=== PATIENT | female | born 1990 | race African-American/Black ===

== ENCOUNTER 2016-12-01 12:11 | Emergency (ER) | payer BC, MEDICAID ==
[~2016-12-01] VITALS: Ht 165.1 cm; Wt 56.2 kg
[~2016-12-01 12:11] MED LIST: MECL-62 PO; ZITH250T PO
[2016-12-01 12:30] VITALS: BP 108/68; PULSE 76; RESP 16; TEMP 98.5; O2SAT 100
[2016-12-01] MEDS ORDERED: ONDANSETRON ODT 4 MG TAB PO ONE (13:15)
[2016-12-01 13:37] VITALS: BP 107/59; PULSE 66; RESP 16; O2SAT 99
[2016-12-01] MEDS ORDERED: ZOFR4TAB3 SL (13:50)
--- NOTE | 2016-12-01 13:55 | PD ---
HPI Chief Complaint: GI Complaint Time Seen by Provider: 12:58 Travel History International Travel<30 days: No Contact w/Intl Traveler<30days: No Traveled to known affect area: No History of Present Illness HPI This patient reports that she is 9 weeks . She complains of nausea with some vomiting. She had the same symptoms at about the same time with her last . No abdominal or pelvic pain. No vaginal bleeding or discharge or fever or urinary complaints. Does not have diarrhea. Symptoms severity is mild to moderate. No alleviating factors. PFSH Past Medical History Medical History: Denies Significant Hx Diminished Hearing: No Immunizations Current: Yes Tetanus Vaccination: < 5 Years Influenza Vaccination: No ?: LMP: APPROX 9 WEEKS : 2 Para: 1 : 1 Past Surgical History Surgical History: No Previous Surgery Abdominal Surgery: Yes Section: Yes (JUN 2007) Social History Alcohol Use: Yes (SOCIALLY) Tobacco Use: No Substance Use: No Allergies-Medications (Allergen,Severity, Reaction): Coded Allergies: Phenergan (Verified Adverse Reaction, Intermediate, HYPER ACTIVY, 12/01/16) Reported Meds & Prescriptions Reported Meds & Active Scripts Active Zofran Odt (Ondansetron Odt) 4 Mg Tab 4 Mg SL Q6HR PRN Zithromax Z-Vladimir (Azithromycin) 250 Mg Tab 250 Mg PO DIRECTED 500 MG (2 TABLETS) PO ON DAY 1, THEN 250 MG (1 TABLET) PO ON DAYS 2 TO 5. Meclizine Hcl (Meclizine HCl) 25 Mg Tab 25 Mg PO TID PRN Review of Systems General / Constitutional: No: Fever Eyes: No: Visual changes HENT: No: Headaches Cardiovascular: No: Chest Pain or Discomfort Respiratory: No: Shortness of Breath Gastrointestinal: Positive: Nausea, Vomiting, No: Abdominal Pain Genitourinary: No: Dysuria Musculoskeletal: No: Pain Skin: No Rash Neurologic: No: Weakness Psychiatric: No: Depression Endocrine: No: Polydipsia Hematologic/Lymphatic: No: Easy Bruising Physical Exam Narrative GENERAL: Well-nourished, well-developed patient in no apparent distress. SKIN: Warm and dry. HEAD: Atraumatic. Normocephalic. EYES: Pupils equal and round. No scleral icterus. No injection or drainage. ENT: No nasal bleeding or discharge. Mucous membranes pink and moist. NECK: Trachea midline. No JVD. CARDIOVASCULAR: Regular rate and rhythm. No murmur appreciated. RESPIRATORY: No accessory muscle use. Clear to auscultation. Breath sounds equal bilaterally. GASTROINTESTINAL: Abdomen soft, non-tender, nondistended. Hepatic and splenic margins not palpable. MUSCULOSKELETAL: No obvious deformities. No clubbing. No cyanosis. No edema. NEUROLOGICAL: Awake and alert. No obvious cranial nerve deficits. Motor grossly within normal limits. Normal speech. PSYCHIATRIC: Appropriate mood and affect; insight and judgment normal. Data Data Last Documented VS Vital Signs Date Time Temp Pulse Resp B/P Pulse Ox O2 Delivery O2 Flow Rate FiO2 12/01/16 13:37 66 16 107/59 99 Room Air 12/01/16 12:30 98.5 Orders Ondansetron Odt (Zofran Odt) (12/01/16 13:15) [facility] Medical Decision Making Medical Screen Exam Complete: Yes Emergency Medical Condition: Yes Medical Record Reviewed: Yes Differential Diagnosis Hyperemesis gravidarum, dehydration, gastroenteritis Narrative Course I have reviewed the patient's electronic medical record. Patient's vital signs and examination are normal She looks well-hydrated on exam with moist mucous membranes and normal turgor and no tachycardia Abdomen is soft and benign and nontender We discussed options. She would like a prescription for nausea relief. She is allergic to Phenergan so I have written her some Zofran and gave her a dose here She reports that she has an appointment set up to start care Diagnosis Primary Impression: Nausea/vomiting in Additional Instructions: The patient was advised to follow up with their physician and return if they worsen. I have recommended clear liquids for 24 hours, then gradually advance as tolerated. Med/Other Pt SpecificInfo: Prescription(s) given Scripts Ondansetron Odt (Zofran Odt)4 Mg Tab4 Mg SL Q6HR PRN (Nausea/Vomiting) #20 TAB Ref 0 Prov:Dash Durant MD 12/01/16 Disposition: 01 DISCHARGE HOME Condition: Stable Dash Durant MD Dec 01, 2016 13:55
== END 2016-12-01 14:05 | disposition home or self-care (01) ==
LOC: PHED 12:11
DX: O21.0 Mild hyperemesis gravidarum (principal); Z3A.09 9 weeks gestation of pregnancy
CPT/HCPCS: 99283

== ENCOUNTER 2016-12-18 01:06 | Emergency (ER) | payer MEDICAID ==
[~2016-12-18] VITALS: Ht 165.1 cm; Wt 57.0 kg
[~2016-12-18 01:06] MED LIST changes: +ZOFR4TAB3 SL
[2016-12-18 01:08] VITALS: BP 118/80; PULSE 92; RESP 16; TEMP 98; O2SAT 99
--- NOTE | 2016-12-18 01:26 | PD ---
HPI Chief Complaint: Cold / Flu Symptoms Time Seen by Provider: 01:23 Travel History International Travel<30 days: No Contact w/Intl Traveler<30days: No Traveled to known affect area: No History of Present Illness HPI 26-year-old 2 para 1 with a 11 week estimated gestational age IUP presents with a five-day history of cough, congestion, and general malaise. She states that this is worse at night when she lays down. She also states that in the morning she'll cough up some brown mucus which clears up. She denies any asthma. She does not smoke. She denies fever and chills. Positive nausea and vomiting at times. No abdominal pain. Complications of the . No urine symptoms. No leg swelling or calf pain. PFSH Past Medical History Medical History: Denies Significant Hx Diminished Hearing: No Immunizations Current: Yes Tetanus Vaccination: < 5 Years ?: : 2 Para: 1 : 1 Past Surgical History Abdominal Surgery: Yes Section: Yes (JUN 2007) Social History Alcohol Use: Yes (SOCIALLY) Tobacco Use: No Substance Use: No Allergies-Medications (Allergen,Severity, Reaction): Coded Allergies: Phenergan (Verified Adverse Reaction, Intermediate, HYPER ACTIVY, 12/18/16) Reported Meds & Prescriptions Reported Meds & Active Scripts Active Zofran Odt (Ondansetron Odt) 4 Mg Tab 4 Mg SL Q6HR PRN Zithromax Z-Vladimir (Azithromycin) 250 Mg Tab 250 Mg PO DIRECTED 500 MG (2 TABLETS) PO ON DAY 1, THEN 250 MG (1 TABLET) PO ON DAYS 2 TO 5. Meclizine Hcl (Meclizine HCl) 25 Mg Tab 25 Mg PO TID PRN Review of Systems Except as stated in HPI: all other systems reviewed are Neg Physical Exam Narrative GENERAL: Well-developed, well-nourished in no acute distress. Nontoxic appearing. HEAD: Normocephalic, atraumatic. EYES: Pupils equal round and reactive. Extraocular motions intact. No scleral icterus. No injection or drainage. ENT: TMs clear without erythema. The external auditory canals clear. Nose: clear . Posterior pharynx is pink and moist. No tonsillar edema or exudate. Uvula midline. Airway patent. NECK: Trachea midline.Supple, nontender, moves head freely. No central bony tenderness or spasm. CARDIOVASCULAR: Regular rate and rhythm without murmurs, gallops, or rubs. RESPIRATORY: Clear to auscultation. Breath sounds equal bilaterally. No wheezes , rales, or rhonchi. GASTROINTESTINAL: Abdomen soft, non-tender, gravid uterus no guarding. EXTREMITIES: No clubbing, cyanosis, or edema. No joint tenderness, effusion, or edema noted. BACK: Nontender without deformity or crepitance. No flank tenderness. Data Data Last Documented VS Vital Signs Date Time Temp Pulse Resp B/P Pulse Ox O2 Delivery O2 Flow Rate FiO2 12/18/16 01:08 98.0 92 16 118/80 99 Orders Influenzae A/B Antigen (12/18/16 01:22) MDM Medical Decision Making Medical Screen Exam Complete: Yes Emergency Medical Condition: Yes Medical Record Reviewed: Yes Interpretation(s) Influenza: Negative Differential Diagnosis MDM: High Differential diagnoses: Pneumonia, bronchitis, URI, asthma, RAD, influenza Narrative Course Patient is influenza is negative. Her exam is unremarkable. She'll be given albuterol for her cough and advised to take Tylenol and Sudafed. This is URI Diagnosis Primary Impression: URI (upper respiratory infection) Patient Instructions: General Instructions Additional Instructions: Rest. Increase fluids. Tylenol. Sudafed for congestion albuterol. Followup with your Dr. in one week. Return to the ER for any problems. Med/Other Pt SpecificInfo: Prescription(s) given Scripts Albuterol 6.7 GM Inh (Proventil Hfa 6.7 GM Inh)90 Mcg/Act Aer2 Puff INH Q6H PRN (SHORTNESS OF BREATH) #1 INHALER Prov:Sami Shukla MD 12/18/16 Disposition: 01 DISCHARGE HOME Condition: Stable Lazaro Wells Dec 18, 2016 01:26
[2016-12-18] MEDS ORDERED: ALBU6.7H INH (01:57)
== END 2016-12-18 02:25 | disposition home or self-care (01) ==
LOC: NEPB 01:06
DX: J06.9 Acute upper respiratory infection, unspecified (principal)
CPT/HCPCS: 87804; 99283

== ENCOUNTER 2017-01-05 11:05 | Emergency (ER) | payer MEDICAID ==
[~2017-01-05] VITALS: Ht 165.1 cm; Wt 50.0 kg
[~2017-01-05 11:05] MED LIST changes: +ALBU6.7H INH
[2017-01-05 11:07] VITALS: BP 150/70; PULSE 87; RESP 16; TEMP 97.8; O2SAT 98
--- NOTE | 2017-01-05 13:53 | PD ---
HPI Chief Complaint: Related Problem Time Seen by Provider: 13:39 Travel History International Travel<30 days: No Contact w/Intl Traveler<30days: No Traveled to known affect area: No History of Present Illness HPI This is a 26-year-old female who is 13 weeks who presents to the emergency department with lower abdominal cramping this been going on for 1 week , intermittent, mild, associated with white thick vaginal discharge. She says she always has some discharge but it's increased and more than normal. She's only had one sexual partner her whole life. She denies any fevers or chills and denies any dysuria or itching. She has had an ultrasound in this which was normal. She has a 9-year-old son and then has had one surgical in the past. PFSH Past Medical History Diminished Hearing: No Immunizations Current: Yes ?: : 2 Para: 1 : 1 Past Surgical History Abdominal Surgery: Yes Section: Yes (JUN 2007) Social History Alcohol Use: Yes (SOCIALLY) Tobacco Use: No Substance Use: No Allergies-Medications (Allergen,Severity, Reaction): Coded Allergies: Phenergan (Verified Adverse Reaction, Intermediate, HYPER ACTIVY, 12/18/16) Reported Meds & Prescriptions Reported Meds & Active Scripts Active Proventil Hfa 6.7 GM Inh (Albuterol Sulfate) 90 Mcg/Act Aer 2 Puff INH Q6H PRN Zofran Odt (Ondansetron Odt) 4 Mg Tab 4 Mg SL Q6HR PRN Zithromax Z-Vladimir (Azithromycin) 250 Mg Tab 250 Mg PO DIRECTED 500 MG (2 TABLETS) PO ON DAY 1, THEN 250 MG (1 TABLET) PO ON DAYS 2 TO 5. Meclizine Hcl (Meclizine HCl) 25 Mg Tab 25 Mg PO TID PRN Review of Systems Except as stated in HPI: all other systems reviewed are Neg Physical Exam Narrative GENERAL:Well appearing, no acute distress SKIN: Warm and dry. HEAD: Atraumatic. Normocephalic. EYES: Pupils equal and round. No injection or drainage. ENT: Moist mucous membranes NECK: Trachea midline. CARDIOVASCULAR: Regular rate and rhythm. No murmur appreciated. RESPIRATORY: Clear to auscultation. Breath sounds equal bilaterally. GASTROINTESTINAL: Abdomen soft, mildly tender to palpation in the suprapubic region with no rebound or guarding. MUSCULOSKELETAL: No obvious deformities. NEUROLOGICAL: Awake and alert. No obvious cranial nerve deficits. Moving all extremities. PSYCHIATRIC: Appropriate mood and affect; insight and judgment normal. Data Data Last Documented VS Vital Signs Date Time Temp Pulse Resp B/P Pulse Ox O2 Delivery O2 Flow Rate FiO2 01/05/17 11:07 97.8 87 16 150/70 98 Orders Ed Poc Ultrasound (01/05/17 ) Urinalysis - C+S If Indicated (01/05/17 13:49) Wet Prep Profile (01/05/17 13:49) Gc And Chlamydia Pcr (01/05/17 13:49) Labs Laboratory Tests Test 01/05/17 14:18 Urine Color YELLOW Urine Turbidity HAZY Urine pH 7.0 Urine Specific [place] 1.020 Urine Protein TRACE mg/dL Urine Glucose (UA) NEG mg/dL Urine Ketones 10 mg/dL Urine Occult Blood NEG Urine Nitrite NEG Urine Bilirubin NEG Urine Urobilinogen LESS THAN 2.0 MG/DL Urine Leukocyte Esterase NEG Urine WBC 2 /hpf Urine Squamous Epithelial 2 /hpf Cells Urine Amorphous Sediment RARE Urine Bacteria RARE /hpf Urine Mucus FEW /lpf Microscopic Urinalysis Comment CULT NOT INDICATED Clue Cells (Wet Prep) PRESENT Vaginal Trichomonas (Wet Prep) NONE SEEN Vaginal Yeast (Wet Prep) NONE SEEN MDM Medical Decision Making Medical Screen Exam Complete: Yes Emergency Medical Condition: Yes Interpretation(s) Urinalysis: No infection Wet prep is positive for clue cells Differential Diagnosis Intrauterine , ectopic , pelvic inflammatory disease, bacterial vaginosis, urinary tract infection Narrative Course This is a 26-year-old female who presents to the emergency department with lower abdominal cramping and white vaginal discharge. She is very well- appearing on exam. Bedside ultrasound demonstrates an intrauterine with a normal heart rate. Pelvic exam demonstrates bacterial vaginosis. Wet prep confirmed this. She also has bacteria on urinalysis. She'll be treated with Macrobid and Flagyl. Procedures Procedure Narrative pelvic ultrasound: intrauterine with heart rate of 156 Diagnosis Primary Impression: Bacterial vaginosis Additional Impression: Bacteria in urine Patient Instructions: General Instructions Additional Instructions: If you develop severe or worsening abdominal pain, fever>100.4, persistent vomiting or inability to eat or drink return to the emergency department immediately. Follow up with your primary care physician if your symptoms are not improved Med/Other Pt SpecificInfo: Prescription(s) given Scripts Nitrofurantoin Monohydrate Macrocrystals (Macrobid)100 Mg [id number] Mg PO BID 7 Days Prov:Octavia Elder MD 01/05/17 Metronidazole (Flagyl)500 Mg [id number] Mg PO BID 7 Days Prov:Octavia Elder MD 01/05/17 Disposition: 01 DISCHARGE HOME Condition: Stable Octavia Elder MD Jan 05, 2017 13:53
[2017-01-05 14:41] LABS: BACTERIA, URINE RARE /hpf; BLOOD, URINE NEG (NEG); COMMENT (UR) CULT NOT INDICATED; CULTURE IF INDICATED CULT NOT INDICATED; GLUCOSE,URINE NEG (NEG); KETONE, URINE 10 mg/dL (NEG); MUCUS URINE FEW /lpf (OCC); NITRITE,URINE NEG (NEG); SQUAMOUS EPITHELIAL CELL URINE 2 /hpf (0-5); URINE COLOR YELLOW (YELLW/STRAW)
[2017-01-05] MEDS ORDERED: MACR100C2 PO (14:54)
[2017-01-05] MEDS ORDERED: METR-1 PO (14:54)
[2017-01-05 18:22] LABS: CHLAMYDIA PCR NOT DETECTED (NOT DETECT); NEISSERIA PCR NOT DETECTED (NOT DETECT)
== END 2017-01-05 15:07 | disposition home or self-care (01) ==
LOC: NEPB 11:05
DX: O26.91 Pregnancy related conditions, unspecified, first trimester (principal); O23.591 Infection of other part of genital tract in pregnancy, first trimester; N76.0 Acute vaginitis; R82.71 Bacteriuria; Z3A.13 13 weeks gestation of pregnancy
CPT/HCPCS: 81001; 87210; 87491; 87591; 99284

== ENCOUNTER 2017-07-01 22:34 | Inpatient (IN) | payer MEDICAID ==
[~2017-07-01] VITALS: Ht 167.6 cm; Wt 79.8 kg
[~2017-07-01 22:34] MED LIST changes: +MACR100C2 PO; -MECL-62 PO; +METR-1 PO; -ZITH250T PO
[2017-07-01 23:10] VITALS: PULSE 74
[2017-07-01] MEDS ORDERED: LACTATED RINGER'S 1000 ML INJ 1,000 ML IV ONE (23:11)
[2017-07-01 23:20] VITALS: PULSE 70
[2017-07-01] MEDS ORDERED: TERBUTALINE INJ 1 MG/ML AMP ONE (23:22)
--- NOTE | 2017-07-01 23:23 | HHI.HP ---
History & Physical H&P HPI HPI Chief Complaint Contractions Date Seen: Jul 01, 2017 Time Seen: 23:18 Travel History International Travel<30 Days: No Contact w/Intl Traveler<30Days: No Known Affected Area: No History of Present Illness HPI 26-year-old 2 para 1 at 38 plus weeks gestation weeks gestation who reports onset of contractions this evening which are now occurring every 2-3 minutes. She denies any leakage of fluid or bleeding. She is a prior C- section and planning a repeat . Para: 1 : 2 History (Limited) History Past Medical History Medical History: Denies Significant Hx Obstetric History Obstetric History care with Dr. Montes Her first child was delivered by for arrest of descent at complete dilation. Past Surgical History Narrative Surgical Family History Family History: Negative Social History Alcohol Use: No Tobacco Use: No Substance Abuse: No Allergies-Medications Allergies-Medications (Allergen,Severity, Reaction): Coded Allergies: promethazine (Unverified Adverse Reaction, Intermediate, HYPER ACTIVY, ) Home Meds Active Scripts Nitrofurantoin Monohydrate Macrocrystals (Macrobid) 100 Mg Cap, 100 MG PO BID for Infection for 7 Days, CAP Prov:Octavia Elder MD 01/05/17 Metronidazole (Flagyl) 500 Mg Tab, 500 MG PO BID for Infection for 7 Days, TAB Prov:Octavia Elder MD 01/05/17 Albuterol 6.7 GM Inh (Proventil Hfa 6.7 GM Inh) 90 Mcg/Act Aer, 2 PUFF INH Q6H Y for SHORTNESS OF BREATH, #1 INHALER Prov:Sami Shukla MD 12/18/16 Ondansetron Odt (Zofran Odt) 4 Mg Tab, 4 MG SL Q6HR Y for Nausea/Vomiting, #20 TAB 0 Refills Prov:Dash Durant MD 12/01/16 ROS Review of Systems Except as stated in HPI: all other systems reviewed are Neg Physical Exam Physical Exam Narrative GENERAL: Well-nourished, well-developed patient. SKIN: Warm and dry. HEAD: Normocephalic and atraumatic. EYES: No scleral icterus. No injection or drainage. ENT: No nasal drainage noted. Mucous membranes pink. Airway patent. NECK: Supple, trachea midline. No JVD. CARDIOVASCULAR: Regular rate and rhythm without murmurs, gallops, or rubs. RESPIRATORY: Breath sounds equal bilaterally. No accessory muscle use. ABDOMEN/GI: Abdomen soft, non-tender, bowel sounds present, no rebound, no guarding Gravid to [-] weeks size Fundal Height: [-39] GENITOURINARY: External Genitalia: intact and normal in appearance BUS glands: [Negative-] Cervix: [-] Dilatation: [-2] Effacement: [80 Station: [--2] Presentation: [Vertex-] Membranes: [intact ] Uterine Contractions: [Every 2-3-] FHT's: Category: [-1] Baseline: [-] Reactive: [-] Variability: [-] Decels: [-] EXTREMITIES: No cyanosis or edema. BACK: Nontender without obvious deformity. No CVA tenderness. NEUROLOGICAL: Awake and alert. Motor and sensory grossly within normal limits. Five out of 5 muscle strength in all muscle groups. Normal speech. Data Data MDM MDM Medical Record Reviewed: Yes Narrative Course / MDM Assessment: 38+ week intrauterine in labor with prior and planning repeat . Plan: Admit for repeat . Juan Cleveland MD Jul 01, 2017 23:22 Juan Cleveland MD Jul 01, 2017 23:23
[2017-07-01 23:25] VITALS: PULSE 70
[2017-07-01 23:30] VITALS: PULSE 79
[2017-07-01 23:33] LABS: AUTOMATED NEUTROPHIL # 9.8 TH/MM3 (1.8-7.7); BASOPHIL % 0.4 % (0.0-2.0); EOSINOPHIL % 0.3 % (0.0-4.0); HEMATOCRIT 36.8 % (35.0-46.0); LYMPH % 14.2 % (9.0-44.0); LYMPHOCYTE # 1.9 TH/MM3 (1.0-4.8); MEAN CELL VOLUME 84.2 FL (80.0-100.0); MEAN CORPUSCULAR HEMOGLOBIN 29.1 PG (27.0-34.0); MEAN CORPUSCULAR HGB CONC 34.6 % (32.0-36.0); NEUT % 75.1 % (16.0-70.0); PLATELET COUNT 177 TH/MM3 (150-450); RED BLOOD COUNT 4.38 MIL/MM3 (4.00-5.30); RED CELL DISTRIBUTION WIDTH 14.6 % (11.6-17.2); WHITE BLOOD COUNT 13.1 TH/MM3 (4.0-11.0)
[2017-07-01 23:34] LABS: HEMO FLAGS AUTO DIFF
[2017-07-01 23:35] VITALS: PULSE 90
[2017-07-01 23:40] VITALS: PULSE 103
[2017-07-01] MEDS ORDERED: LACTATED RINGER'S 1000 ML INJ 1,000 ML IV SCH (23:41)
[2017-07-01] MEDS ORDERED: OXYTOCIN 10 UNIT/ML AMP ONE (23:55)
[2017-07-02] VITALS (16 sets, daily range): BP systolic 113–162; BP diastolic 60–87; PULSE 64–90; RESP 18–30; TEMP 97.9–98.9; O2SAT 99–100
[2017-07-02 00:05] LABS: SCAN/DIFF AUTO DIFF CONFIRMED
[2017-07-02 00:06] LABS: PLATELET ESTIMATE SMEAR NORMAL (NORMAL); PLATELET MORPHOLOGY NORMAL (NORMAL)
[2017-07-02] MEDS ORDERED: ceFAZolin 2 GM PREMIX 50 ML IV SCH (00:15)
[2017-07-02] MEDS ORDERED: CITRIC ACID-SODIUM CITRATE LIQ 30 ML UDC PO SCH (00:45)
[2017-07-02] MEDS ORDERED: MORPHINE SULFATE PF 5 MG/10 ML VIAL ONE (00:54)
[2017-07-02] MEDS ORDERED: ONDANSETRON HCL 4 MG/2 ML VIAL ONE (00:54)
--- NOTE | 2017-07-02 00:57 | PD.OB.DELI ---
Procedure Note Section Procedure Pre Op Diagnosis: (1) History of delivery, currently (2) state, incidental Post Op Diagnosis: (1) History of delivery, currently (2) state, incidental Performed by Stefania Bowman Procedure: Repeat Low Transverse Sec Indication for delivery: Desired elective repeat Previous condition: Other Informed consent obtained: For procedure Confirmed correct: Time-out taken Anesthesia: Spinal Medication prior to procedure: As documented in eMAR Urinary catheter: Inserted using sterile technique (200cc) Sterile preparation: Duraprep Position: Supine with wedge to right side Operative Features Skin Incision: Pfannenstiel Uterine Incision: Low transverse w/knife / scissors Membranes Ruptured: Artificially Presentation: Vertex Delivery date: Jul 02, 2017 Delivery time: 00:23 Delivery of : Uneventful : Male One Minute : 9 Five Minute : 9 Weight: 7-8 Status of infant: Viable Placenta delivered: Intact Estimated blood loss: 500cc Procedure tolerated: Well Maternal Condition: Stable Condition: Stable Stefania Bowman MD Jul 02, 2017 00:57
[2017-07-02] MEDS ORDERED: ONDANSETRON HCL 4 MG/2 ML VIAL IV PUSH PRN (01:00)
[2017-07-02] MEDS ORDERED: ZOLPIDEM TARTRATE 5 MG TAB PO PRN (01:00)
[2017-07-02] MEDS ORDERED: SODIUM CHLORIDE 0.9% FLUSH 10 ML FLUSH IV FLUSH PRN (01:00)
[2017-07-02] MEDS ORDERED: SIMETHICONE 80 MG CHEWABLE TAB PO PRN (01:00)
[2017-07-02] MEDS ORDERED: OXYTOCIN 30 UNITS-500ML PREMIX 500 ML IV ONE (01:00)
[2017-07-02] MEDS ORDERED: ACETAMINOPHEN 325 MG TAB PO PRN (01:00)
[2017-07-02] MEDS ORDERED: KETOROLAC TROMETHAMINE 60 MG/2 ML (IM) VIAL IM PRN (01:00)
[2017-07-02 01:52] LABS: BACTERIA, URINE RARE /hpf; BLOOD, URINE NEG (NEG); COMMENT (UR) CULT NOT INDICATED; CULTURE IF INDICATED CULT NOT INDICATED; GLUCOSE,URINE NEG (NEG); KETONE, URINE NEG (NEG); NITRITE,URINE NEG (NEG); SQUAMOUS EPITHELIAL CELL URINE 4 /hpf (0-5); URINE COLOR LIGHT-YELLOW (YELLW/STRAW)
[2017-07-02] MEDS ORDERED: OXYTOCIN 30 UNITS-500ML PREMIX 500 ML ONE (02:04)
[2017-07-02] MEDS ORDERED: PREN29TA PO (02:16)
[2017-07-02] MEDS ORDERED: LACTATED RINGER'S 1000 ML INJ 1,000 ML IV SCH (05:53)
[2017-07-02] MEDS ORDERED: SODIUM CHLORIDE 0.9% FLUSH 10 ML FLUSH IV FLUSH SCH (09:00)
--- NOTE | 2017-07-02 10:10 | HHI.OB ---
Subjective Post Operative Day: 1 Remarks no c/o Objective Vitals/I&O Vital Signs Date Time Temp Pulse Resp B/P (MAP) Pulse Ox O2 Delivery O2 Flow Rate FiO2 07/02/17 09:29 18 07/02/17 07:30 98.3 64 99 07/02/17 07:30 141/69 (93) 07/02/17 07:17 19 07/02/17 03:00 98.2 66 20 99 07/02/17 03:00 144/76 (98) 07/02/17 02:04 76 19 149/72 (97) 100 07/02/17 01:45 81 162/60 (94) 07/02/17 01:45 24 100 07/02/17 01:31 73 20 158/70 (99) 100 07/02/17 01:17 79 30 146/67 (93) 100 07/02/17 01:07 22 100 07/02/17 01:07 87 124/86 (99) 07/02/17 00:55 121/81 (94) 07/02/17 00:55 90 18 100 07/02/17 00:55 98.6 07/01/17 23:40 103 07/01/17 23:35 90 07/01/17 23:30 79 07/01/17 23:25 70 07/01/17 23:20 70 07/01/17 23:10 74 Result Diagram: 07/01/172319 Objective Remarks GENERAL: Well-nourished, well-developed patient. CARDIOVASCULAR: Regular rate and rhythm without murmurs, gallops, or rubs. RESPIRATORY: Breath sounds equal bilaterally. No accessory muscle use. ABDOMEN/GI: Abdomen soft, non-tender, bowel sounds present. Incision: dressing Clean, dry and intact. Fundus: Firm, non-tender at umbilicus. GENITOURINARY: Light to moderate bleeding. EXTREMITIES: No cyanosis or edema, non-tender, without signs of DVT. Medications and IVs Current Medications Medications (Trade) Dose Ordered Sig/Lora Route Start Time Stop Time Status Last Admin Lactated Ringer's 1,000 ml @ 100 mls/hr Q10H IV 07/02/17 05:53 07/03/17 01:52 Oxytocin 500 ml @ 100 mls/hr UNSCH X1 PRN IV 07/02/17 11:00 07/03/17 10:59 (NS Flush) 2 ml BID IV FLUSH 07/02/17 09:00 (NS Flush) 2 ml UNSCH PRN IV FLUSH 07/02/17 01:00 (Mylicon Chew) 80 mg QID PRN PO 07/02/17 01:00 (Tylenol) 650 mg Q6H PRN PO 07/02/17 01:00 (Motrin) 600 mg Q6H PRN PO 07/02/17 01:00 (Toradol Inj) 60 mg UNSCH X1 PRN IM 07/02/17 01:00 07/03/17 00:59 (Percocet 5-325 Mg) 1 tab Q4H PRN PO 07/02/17 01:00 (Percocet 5-325 Mg) 2 tab Q4H PRN PO 07/02/17 01:00 (Angelica-Colace) 2 tab Q12H PRN PO 07/02/17 01:00 (Ambien) 5 mg HS PRN PO 07/02/17 01:00 (M-M-R Ii Inj) 0.5 ml ONCE ONCE SQ 07/03/17 16:00 07/03/17 16:01 (Boostrix Inj) 0.5 ml ONCE ONCE IM 07/03/17 16:00 07/03/17 16:01 (Zofran Inj) 4 mg Q6H PRN IV PUSH 07/02/17 01:00 Assessment/Plan Problem List: (1) delivery delivered ICD Codes: O82 - Encounter for delivery without indication (2) History of delivery, currently ICD Codes: O34.219 - Maternal care for unspecified type scar from previous delivery Assessment and Plan POD #1 s/p elective repeat c/s thick scar tissue, remove sindy POD#3 Discharge Planning routine Attending Attestation pt seen by Stefania Shaikh MD Jul 02, 2017 10:10
[2017-07-02] MEDS ORDERED: OXYTOCIN 30 UNITS-500ML PREMIX 500 ML IV PRN (11:00)
[2017-07-02] MEDS: oxyCODONE/ACETAMINOPHEN 5 MG/325 MG TAB PO PRN ×3 (12:33→23:03)
[2017-07-02] MEDS: IBUPROFEN 600 MG TAB PO PRN ×2 (12:34→19:10)
[2017-07-03 05:00] VITALS: RESP 18
[2017-07-03] MEDS: DOCUSATE SODIUM 50 MG/SENNA 8.6 MG TAB PO PRN ×2 (05:01→23:47)
[2017-07-03] MEDS: oxyCODONE/ACETAMINOPHEN 5 MG/325 MG TAB PO PRN ×5 (05:02→23:47)
[2017-07-03] MEDS: IBUPROFEN 600 MG TAB PO PRN ×3 (05:02→19:48)
[2017-07-03 05:14] LABS: AUTOMATED NEUTROPHIL # 11.6 TH/MM3 (1.8-7.7); BASOPHIL % 0.2 % (0.0-2.0); EOSINOPHIL # 0.1 TH/MM3 (0-0.4); EOSINOPHIL % 0.6 % (0.0-4.0); HEMATOCRIT 31.2 % (35.0-46.0); HEMO FLAGS DIFF FINAL; LYMPH % 13.4 % (9.0-44.0); MEAN CELL VOLUME 85.4 FL (80.0-100.0); MONO % 7.9 % (0.0-8.0); NEUT % 77.9 % (16.0-70.0); PLATELET COUNT 150 TH/MM3 (150-450); RED BLOOD COUNT 3.66 MIL/MM3 (4.00-5.30); RED CELL DISTRIBUTION WIDTH 14.7 % (11.6-17.2); WHITE BLOOD COUNT 14.9 TH/MM3 (4.0-11.0)
[2017-07-03 08:10] VITALS: BP 121/81; PULSE 67; RESP 14; TEMP 97.8
--- NOTE | 2017-07-03 09:10 | HHI.OB ---
Subjective Post Operative Day: 2 Remarks POD#2, stable Objective Vitals/I&O Vital Signs Date Time Temp Pulse Resp B/P (MAP) Pulse Ox O2 Delivery O2 Flow Rate FiO2 07/03/17 08:10 97.8 67 14 121/81 (94) 07/03/17 05:00 18 07/02/17 23:00 97.9 65 18 119/65 (83) 07/02/17 22:00 97.9 07/02/17 22:00 119/65 (83) 07/02/17 22:00 65 18 07/02/17 20:00 98.2 68 20 142/87 (105) 07/02/17 15:29 20 07/02/17 12:39 98.9 20 100 07/02/17 12:39 79 113/68 (83) 07/02/17 11:02 19 07/02/17 09:29 18 Result Diagram: 07/03/17 0454 Objective Remarks GENERAL: Well-nourished, well-developed patient. CARDIOVASCULAR: Regular rate and rhythm without murmurs, gallops, or rubs. RESPIRATORY: Breath sounds equal bilaterally. No accessory muscle use. ABDOMEN/GI: Abdomen soft, non-tender, bowel sounds present. Incision: dressing Clean, dry and intact. Fundus: Firm, non-tender at umbilicus. GENITOURINARY: Light to moderate bleeding. EXTREMITIES: No cyanosis or edema, non-tender, without signs of DVT. Medications and IVs Current Medications Medications (Trade) Dose Ordered Sig/Lora Route Start Time Stop Time Status Last Admin Oxytocin 500 ml @ 100 mls/hr UNSCH X1 PRN IV 07/02/17 11:00 07/03/17 10:59 (NS Flush) 2 ml BID IV FLUSH 07/02/17 09:00 (NS Flush) 2 ml UNSCH PRN IV FLUSH 07/02/17 01:00 (Mylicon Chew) 80 mg QID PRN PO 07/02/17 01:00 (Tylenol) 650 mg Q6H PRN PO 07/02/17 01:00 (Motrin) 600 mg Q6H PRN PO 07/02/17 01:00 07/03/17 05:02 (Percocet 5-325 Mg) 1 tab Q4H PRN PO 07/02/17 01:00 07/03/17 05:02 (Percocet 5-325 Mg) 2 tab Q4H PRN PO 07/02/17 01:00 (Angelica-Colace) 2 tab Q12H PRN PO 07/02/17 01:00 07/03/17 05:01 (Ambien) 5 mg HS PRN PO 07/02/17 01:00 (M-M-R Ii Inj) 0.5 ml ONCE ONCE SQ 07/03/17 16:00 07/03/17 16:01 (Boostrix Inj) 0.5 ml ONCE ONCE IM 07/03/17 16:00 07/03/17 16:01 (Zofran Inj) 4 mg Q6H PRN IV PUSH 07/02/17 01:00 Assessment/Plan Problem List: (1) delivery delivered ICD Codes: O82 - Encounter for delivery without indication (2) History of delivery, currently ICD Codes: O34.219 - Maternal care for unspecified type scar from previous delivery Assessment and Plan POD #2 s/p elective repeat c/s thick scar tissue, remove sindy POD#3 Plan d/c for tomorrow Discharge Planning routine Juan Ruiz MD Jul 03, 2017 09:10
[2017-07-03] MEDS ORDERED: MEASLES, MUMPS, RUBELLA VACCINE 0.5 ML VIAL SQ ONE (16:00)
[2017-07-03] MEDS ORDERED: DIPHTH/TETANUS/ACEL PERTUSSIS (BOOSTER) 0.5 ML VIAL/PFS IM ONE (16:00)
--- NOTE | 2017-07-03 18:29 | HHI.DCPOC ---
Discharge Care Plan Diagnosis: (1) delivery delivered Your Health Problems Are: delivery Report Symptoms to Your Doctor -Temperature above 100.5 degrees -Redness, of incision or excessive or foul smelling drainage -Unusual pain or calf pain -Increased vaginal bleeding -Painful or difficulty urinating -Feelings of extreme sadness or anxiety after 2 weeks Goals to Promote Your Health * To prevent worsening of your condition and complications * To maintain your health at the optimal level Directions to Meet Your Goals Take your medications as prescribed Follow your dietary instruction Follow activity as directed Ensure plenty of rest for recovery Drink fluids for hydration Keep your appointments as scheduled Take your immunizations and boosters as scheduled If your symptoms worsen call your PCP, if no PCP go to Urgent Care Center or Emergency Room Smoking is Dangerous to Your Health. Avoid second hand smoke Call the 24-hour crisis hotline for domestic abuse at Lissa Canada MD Jul 03, 2017 18:29
[2017-07-03] MEDS ORDERED: IBUP-232 PO (18:31)
[2017-07-03] MEDS ORDERED: SENN1TAB PO (18:31)
[2017-07-03] MEDS ORDERED: OXYC1TAB63 PO (18:31)
[2017-07-03 20:00] VITALS: BP 153/84; PULSE 72; RESP 18; TEMP 98.3
[2017-07-04] MEDS: oxyCODONE/ACETAMINOPHEN 5 MG/325 MG TAB PO PRN ×4 (04:57→20:51)
--- NOTE | 2017-07-04 08:06 | HHI.DCPOC ---
Discharge Care Plan Report Symptoms to Your Doctor -Temperature above 100.5 degrees -Redness, of incision or excessive or foul smelling drainage -Unusual pain or calf pain -Increased vaginal bleeding -Painful or difficulty urinating -Feelings of extreme sadness or anxiety after 2 weeks Goals to Promote Your Health * To prevent worsening of your condition and complications * To maintain your health at the optimal level Directions to Meet Your Goals Take your medications as prescribed Follow your dietary instruction Follow activity as directed Ensure plenty of rest for recovery Drink fluids for hydration Keep your appointments as scheduled Take your immunizations and boosters as scheduled If your symptoms worsen call your PCP, if no PCP go to Urgent Care Center or Emergency Room Smoking is Dangerous to Your Health. Avoid second hand smoke Call the 24-hour crisis hotline for domestic abuse at Michelle Montes MD Jul 04, 2017 08:06
--- NOTE | 2017-07-04 08:07 | HHI.OB ---
Subjective Post Operative Day: 3 Remarks Doing well on POD3 no complaints Objective Vitals/I&O Vital Signs Date Time Temp Pulse Resp B/P (MAP) Pulse Ox O2 Delivery O2 Flow Rate FiO2 07/03/17 20:00 98.3 72 18 153/84 (107) 07/03/17 08:10 97.8 67 14 121/81 (94) Result Diagram: 07/03/17 0454 Objective Remarks GENERAL: Well-nourished, well-developed patient. CARDIOVASCULAR: Regular rate and rhythm without murmurs, gallops, or rubs. RESPIRATORY: Breath sounds equal bilaterally. No accessory muscle use. ABDOMEN/GI: Abdomen soft, non-tender, bowel sounds present. Incision: dressing Clean, dry and intact. Fundus: Firm, non-tender at umbilicus. GENITOURINARY: Light to moderate bleeding. EXTREMITIES: No cyanosis or edema, non-tender, without signs of DVT. Medications and IVs Current Medications Medications (Trade) Dose Ordered Sig/Lora Route Start Time Stop Time Status Last Admin (NS Flush) 2 ml BID IV FLUSH 07/02/17 09:00 (NS Flush) 2 ml UNSCH PRN IV FLUSH 07/02/17 01:00 (Mylicon Chew) 80 mg QID PRN PO 07/02/17 01:00 07/03/17 23:47 (Tylenol) 650 mg Q6H PRN PO 07/02/17 01:00 (Motrin) 600 mg Q6H PRN PO 07/02/17 01:00 07/03/17 19:48 (Percocet 5-325 Mg) 1 tab Q4H PRN PO 07/02/17 01:00 07/04/17 04:57 (Percocet 5-325 Mg) 2 tab Q4H PRN PO 07/02/17 01:00 07/03/17 23:47 (Angelica-Colace) 2 tab Q12H PRN PO 07/02/17 01:00 07/03/17 23:47 (Ambien) 5 mg HS PRN PO 07/02/17 01:00 (Zofran Inj) 4 mg Q6H PRN IV PUSH 07/02/17 01:00 Assessment/Plan Problem List: (1) delivery delivered ICD Codes: O82 - Encounter for delivery without indication (2) History of delivery, currently ICD Codes: O34.219 - Maternal care for unspecified type scar from previous delivery Assessment and Plan POD #3 s/p elective repeat c/s thick scar tissue, removed staplesl discharged to home RTO for one week Discharge Planning routine Michelle Montes MD Jul 04, 2017 08:07
--- NOTE | 2017-07-04 08:19 | HHI.OB ---
Subjective Post Operative Day: 3 Remarks was upset by something this am and crying and BP went up to 160/72 reviewing blood pressures apparently nurse called DCF about smell of pot in the room. Objective Vitals/I&O Vital Signs Date Time Temp Pulse Resp B/P (MAP) Pulse Ox O2 Delivery O2 Flow Rate FiO2 07/03/17 20:00 98.3 72 18 153/84 (107) Result Diagram: 07/03/17 0454 Objective Remarks GENERAL: Well-nourished, well-developed patient. CARDIOVASCULAR: Regular rate and rhythm without murmurs, gallops, or rubs. RESPIRATORY: Breath sounds equal bilaterally. No accessory muscle use. ABDOMEN/GI: Abdomen soft, non-tender, bowel sounds present. Incision: dressing Clean, dry and intact. Fundus: Firm, non-tender at umbilicus. GENITOURINARY: Light to moderate bleeding. EXTREMITIES: No cyanosis or edema, non-tender, without signs of DVT. Medications and IVs Current Medications Medications (Trade) Dose Ordered Sig/Lora Route Start Time Stop Time Status Last Admin (NS Flush) 2 ml BID IV FLUSH 07/02/17 09:00 (NS Flush) 2 ml UNSCH PRN IV FLUSH 07/02/17 01:00 (Mylicon Chew) 80 mg QID PRN PO 07/02/17 01:00 07/03/17 23:47 (Tylenol) 650 mg Q6H PRN PO 07/02/17 01:00 (Motrin) 600 mg Q6H PRN PO 07/02/17 01:00 07/03/17 19:48 (Percocet 5-325 Mg) 1 tab Q4H PRN PO 07/02/17 01:00 07/04/17 04:57 (Percocet 5-325 Mg) 2 tab Q4H PRN PO 07/02/17 01:00 07/03/17 23:47 (Angelica-Colace) 2 tab Q12H PRN PO 07/02/17 01:00 07/03/17 23:47 (Ambien) 5 mg HS PRN PO 07/02/17 01:00 (Zofran Inj) 4 mg Q6H PRN IV PUSH 07/02/17 01:00 Assessment/Plan Problem List: (1) delivery delivered ICD Codes: O82 - Encounter for delivery without indication (2) History of delivery, currently ICD Codes: O34.219 - Maternal care for unspecified type scar from previous delivery Assessment and Plan POD #3 s/p elective repeat c/s post onset of elevated blood pressures had elevated pressures with last baby during labor but not after will start labatelol 100 bid will watch another 24 hours. thick scar tissue sindy out today Discharge Planning routine Michelle Montes MD Jul 04, 2017 08:19
[2017-07-04] MEDS: LABETALOL HCL 100 MG TAB PO SCH ×2 (09:02→20:51)
[2017-07-04] MEDS: IBUPROFEN 600 MG TAB PO PRN ×3 (09:02→20:52)
[2017-07-04] MEDS: DOCUSATE SODIUM 50 MG/SENNA 8.6 MG TAB PO PRN ×2 (09:02→20:51)
[2017-07-04] MEDS ORDERED: amLODIPine BESYLATE 5 MG TAB PO ONE (15:00)
[2017-07-04] MEDS ORDERED: MEASLES, MUMPS, RUBELLA VACCINE 0.5 ML VIAL SQ ONE (16:00)
[2017-07-04] MEDS ORDERED: DIPHTH/TETANUS/ACEL PERTUSSIS (BOOSTER) 0.5 ML VIAL/PFS IM ONE (16:00)
--- NOTE | 2017-07-04 18:15 | MP ---
cc: MARJORIE KHAN DATE OF SURGERY 07/02/17 PREOPERATIVE DIAGNOSIS Intrauterine at 38+ weeks, previous section, desires repeat section presented to labor and delivery in active labor. POSTOPERATIVE DIAGNOSIS Intrauterine at 38+ weeks, previous section, desires repeat section presented to labor and delivery in active labor. PROCEDURE Repeat lower segment transverse section via Pfannenstiel skin incision. SURGEON Dr. Fernanda Khan COVERING AND LINING SUPERVISOR Dr. Lara FLUIDS 1300 mL crystalloid URINE OUTPUT 200 mL clear yellow ESTIMATED BLOOD LOSS 500 mL FINDINGS A live male was delivered vertex presentation, Apgars 9 at 1 minutes and 9 at 5 minutes. weight was 7 pounds 8 ounces PROCEDURE IN DETAIL The patient was taken to the operating room where spinal anesthesia was found to be adequate. She was then prepped and draped in the normal sterile fashion in the dorsal supine position with a leftward tilt. The Pfannenstiel skin incision was made with a scalpel and carried down to the underlying layer of fascia. The fascia was nicked in the midline. The incision was extended laterally with curved Lynn scissors. The fascial scar tissue was very thick and tough. The inferior aspect of the incision was grasped with Douglas clamps, elevated and the rectus muscles dissected off sharply. The superior aspect of the incision was grasped with Douglas clamps, elevated and the rectus muscles dissected off sharply. Again, thick scar tissue was noted and the dissection was performed with a scalpel blade. The rectus muscles were in the midline. The peritoneum was identified, grasped between two Suma clamps, elevated and entered sharply with Metzenbaum scissors. This incision was extended superiorly and inferiorly with good visualization of the bladder. The bladder blade was then inserted. The vesicouterine peritoneum was identified, grasped with pickups and entered sharply with Metzenbaum scissors. This incision was extended laterally. The bladder flap was created sharply. The lower uterine segment was incised in a transverse fashion with a scalpel. This incision was extended laterally with bandage scissors. Clear amniotic fluid was noted. The vertex was delivered atraumatically. The shoulders were delivered atraumatically. The cord was clamped x2 and cut. The infant was handed off to the waiting nurse. The placenta was delivered manually and sent for donation. The uterus was cleared of all clots and debris. The uterine incision was repaired in two layers with one Vicryl. Hemostasis was assured. The gutters were cleared of all clots and debris. The rectus muscle on the left side was reapproximated with an interrupted suture of 3-0 chromic. The fascia was reapproximated using a running stitch of 0 Vicryl. The skin was closed with sindy. A pressure dressing was applied. The sponge, lap, needle and instrument counts were correct x3. The patient was transferred to recovery room in stable condition. MD MELCHOR Barbosa/ /10:33 AM /5:56 PM
[2017-07-04] MEDS: amLODIPine BESYLATE 5 MG TAB PO SCH (21:18)
[2017-07-04] MEDS ORDERED: ALUMINUM/MAGNESIUM/SIMETH 30 ML CUP PO PRN (22:00)
[2017-07-04] MEDS ORDERED: DOCUSATE SODIUM 50 MG/SENNA 8.6 MG TAB PO PRN (22:00)
[2017-07-04] MEDS ORDERED: WITCH HAZEL 50%/GLYCERIN 12.5% 40 PAD JAR TOPICAL PRN (22:00)
[2017-07-04] MEDS ORDERED: OXYTOCIN 30 UNITS-500ML PREMIX 500 ML IV SCH (22:00)
[2017-07-04] MEDS ORDERED: ZOLPIDEM TARTRATE 5 MG TAB PO PRN (22:00)
[2017-07-04] MEDS ORDERED: ACETAMINOPHEN 325 MG TAB PO PRN (22:00)
[2017-07-04] MEDS ORDERED: BENZOCAINE 20% TOPICAL SPRAY 60 ML CAN TOPICAL PRN (22:00)
[2017-07-04] MEDS ORDERED: ONDANSETRON ODT 4 MG TAB PO PRN (22:00)
[2017-07-04] MEDS ORDERED: SODIUM CHLORIDE 0.9% FLUSH 10 ML FLUSH IV FLUSH PRN (22:00)
[2017-07-05] MEDS: oxyCODONE/ACETAMINOPHEN 5 MG/325 MG TAB PO PRN ×3 (06:11→19:20)
[2017-07-05] MEDS: IBUPROFEN 600 MG TAB PO PRN ×3 (06:11→19:20)
[2017-07-05] MEDS ORDERED: SODIUM CHLORIDE 0.9% FLUSH 10 ML FLUSH IV FLUSH SCH (09:00)
--- NOTE | 2017-07-05 09:02 | HHI.OB ---
Subjective Post Operative Day: 3 Objective Vitals/I&O Vital Signs Date Time Temp Pulse Resp B/P (MAP) Pulse Ox O2 Delivery O2 Flow Rate FiO2 07/04/17 10:00 16 07/04/17 10:00 16 Result Diagram: 07/03/17 0454 Objective Remarks GENERAL: Well-nourished, well-developed patient. CARDIOVASCULAR: Regular rate and rhythm without murmurs, gallops, or rubs. RESPIRATORY: Breath sounds equal bilaterally. No accessory muscle use. ABDOMEN/GI: Abdomen soft, non-tender, bowel sounds present. Incision: Clean, dry and intact. Fundus: Firm, non-tender at umbilicus. GENITOURINARY: Light bleeding. EXTREMITIES: No cyanosis or edema, non-tender, without signs of DVT. Medications and IVs Current Medications Medications (Trade) Dose Ordered Sig/Lora Route Start Time Stop Time Status Last Admin (NS Flush) 2 ml BID IV FLUSH 07/02/17 09:00 (NS Flush) 2 ml UNSCH PRN IV FLUSH 07/02/17 01:00 (Mylicon Chew) 80 mg QID PRN PO 07/02/17 01:00 07/03/17 23:47 (Tylenol) 650 mg Q6H PRN PO 07/02/17 01:00 (Motrin) 600 mg Q6H PRN PO 07/02/17 01:00 07/05/17 06:11 (Percocet 5-325 Mg) 1 tab Q4H PRN PO 07/02/17 01:00 07/05/17 06:11 (Percocet 5-325 Mg) 2 tab Q4H PRN PO 07/02/17 01:00 07/04/17 20:51 (Angelica-Colace) 2 tab Q12H PRN PO 07/02/17 01:00 07/04/17 20:51 (Ambien) 5 mg HS PRN PO 07/02/17 01:00 (Zofran Inj) 4 mg Q6H PRN IV PUSH 07/02/17 01:00 (Norvasc) 5 mg BID PO 07/04/17 21:00 07/04/17 21:18 (NS Flush) 2 ml BID IV FLUSH 07/05/17 09:00 (NS Flush) 2 ml UNSCH PRN IV FLUSH 07/04/17 22:00 (Tylenol) 650 mg Q4H PRN PO 07/04/17 22:00 (Motrin) 600 mg Q6H PRN PO 07/04/17 22:00 (Americaine 20% Top Spr) 1 spray Q4H PRN TOPICAL 07/04/17 22:00 (Tucks Pads) 1 applic QID PRN TOPICAL 07/04/17 22:00 (Angelica-Colace) 2 tab Q12H PRN PO 07/04/17 22:00 (Ambien) 5 mg HS PRN PO 07/04/17 22:00 (Mag-Al Plus Susp Liq) 15 ml Q8H PRN PO 07/04/17 22:00 (Zofran Odt) 4 mg Q6H PRN PO 07/04/17 22:00 (Trandate) 200 mg Q12HR PO 07/05/17 09:00 UNV Assessment/Plan Problem List: (1) delivery delivered ICD Codes: O82 - Encounter for delivery without indication Status: Acute (2) History of delivery, currently ICD Codes: O34.219 - Maternal care for unspecified type scar from previous delivery (3) hypertension ICD Codes: O16.5 - Unspecified maternal hypertension, complicating the puerperium Status: Acute Assessment and Plan POD #3 s/p elective repeat c/s post onset of elevated blood pressures had severely elevated pressures last night, no documentation of notification to physician and communications supervisor last night Dr. Canada confirms she was not notified RAO Barahona notified, incident report will increase labatelol from 100 bid to 200 mg bid Novasc 5mg bid was started yesterday evening, continue order PIH labs and start 24h urine not meeting d/c criteria Discharge Planning routine Jennifer Frank MD Jul 05, 2017 09:02
[2017-07-05] MEDS: LABETALOL HCL 200 MG TAB PO SCH ×2 (10:08→21:00)
[2017-07-05] MEDS: amLODIPine BESYLATE 5 MG TAB PO SCH ×2 (10:08→21:00)
[2017-07-05 11:30] LABS: HEMATOCRIT 36.1 % (35.0-46.0); MEAN CELL VOLUME 85.9 FL (80.0-100.0); MEAN CORPUSCULAR HEMOGLOBIN 29.6 PG (27.0-34.0); MEAN CORPUSCULAR HGB CONC 34.5 % (32.0-36.0); PLATELET COUNT 215 TH/MM3 (150-450); RED BLOOD COUNT 4.21 MIL/MM3 (4.00-5.30); RED CELL DISTRIBUTION WIDTH 14.5 % (11.6-17.2); REVIEW FLAG FINAL; WHITE BLOOD COUNT 11.1 TH/MM3 (4.0-11.0)
[2017-07-05 11:45] LABS: BICARBONATE 28.4 MEQ/L (21.0-32.0); POTASSIUM 3.6 MEQ/L (3.5-5.1); URIC ACID 5.2 MG/DL (2.6-6.0)
[2017-07-05 20:20] VITALS: RESP 18
[2017-07-06] MEDS: IBUPROFEN 600 MG TAB PO PRN (04:40)
[2017-07-06] MEDS: oxyCODONE/ACETAMINOPHEN 5 MG/325 MG TAB PO PRN (04:40)
[2017-07-06] MEDS ORDERED: AMLO5 PO (08:27)
[2017-07-06] MEDS ORDERED: LABE200T2 PO (08:27)
--- NOTE | 2017-07-06 08:30 | HHI.OB ---
Subjective Post Operative Day: 4 Remarks has 24 hour urine pending Denies any headaches, blurry vision or ruq pain Objective Vitals/I&O see obtv Vital Signs Date Time Temp Pulse Resp B/P (MAP) Pulse Ox O2 Delivery O2 Flow Rate FiO2 07/05/17 20:20 18 07/05/17 20:20 18 Result Diagram: 07/05/17 1100 07/05/17 1100 Objective Remarks GENERAL: Well-nourished, well-developed patient. CARDIOVASCULAR: Regular rate and rhythm without murmurs, gallops, or rubs. RESPIRATORY: Breath sounds equal bilaterally. No accessory muscle use. ABDOMEN/GI: Abdomen soft, non-tender, bowel sounds present. Incision: Clean, dry and intact. Fundus: Firm, non-tender at umbilicus. GENITOURINARY: Light bleeding. EXTREMITIES: No cyanosis or edema, non-tender, without signs of DVT. Medications and IVs Current Medications Medications (Trade) Dose Ordered Sig/Lora Route Start Time Stop Time Status Last Admin (Mylicon Chew) 80 mg QID PRN PO 07/02/17 01:00 07/03/17 23:47 (Percocet 5-325 Mg) 1 tab Q4H PRN PO 07/02/17 01:00 07/06/17 04:40 (Percocet 5-325 Mg) 2 tab Q4H PRN PO 07/02/17 01:00 07/04/17 20:51 (Zofran Inj) 4 mg Q6H PRN IV PUSH 07/02/17 01:00 (Norvasc) 5 mg BID PO 07/04/17 21:00 07/05/17 21:00 (NS Flush) 2 ml BID IV FLUSH 07/05/17 09:00 (NS Flush) 2 ml UNSCH PRN IV FLUSH 07/04/17 22:00 (Tylenol) 650 mg Q4H PRN PO 07/04/17 22:00 (Motrin) 600 mg Q6H PRN PO 07/04/17 22:00 07/06/17 04:40 (Americaine 20% Top Spr) 1 spray Q4H PRN TOPICAL 07/04/17 22:00 (Tucks Pads) 1 applic QID PRN TOPICAL 07/04/17 22:00 (Angelica-Colace) 2 tab Q12H PRN PO 07/04/17 22:00 (Ambien) 5 mg HS PRN PO 07/04/17 22:00 (Mag-Al Plus Susp Liq) 15 ml Q8H PRN PO 07/04/17 22:00 (Zofran Odt) 4 mg Q6H PRN PO 07/04/17 22:00 (Trandate) 200 mg Q12HR PO 07/05/17 10:00 07/05/17 21:00 Assessment/Plan Problem List: (1) delivery delivered ICD Codes: O82 - Encounter for delivery without indication Status: Acute (2) History of delivery, currently ICD Codes: O34.219 - Maternal care for unspecified type scar from previous delivery (3) hypertension ICD Codes: O16.5 - Unspecified maternal hypertension, complicating the puerperium Status: Acute Assessment and Plan POD #4 s/p elective repeat c/s post onset of elevated blood pressures had severely elevated pressures 07/04. Now on labatelol from 200 mg bid and Novasc 5mg bid with improved bp control PIH labs, no evidence of severity. 24 hour urine with proteinuria but no present signs of severity; magnesium was not given . Will closely follow BP; aware of signs of severity, YO, blurry vision, ruq/epigastric pain. F/U in 1 wk for BP check. Discharge Planning routine Lissa Canada MD Jul 06, 2017 08:30
[2017-07-06] MEDS: LABETALOL HCL 200 MG TAB PO SCH (08:51)
[2017-07-06] MEDS: amLODIPine BESYLATE 5 MG TAB PO SCH (08:54)
[2017-07-06 14:48] LABS: CALCIUM - URINE TIMED 5.5 MG/DL
[2017-07-06 14:49] LABS: URINE TOTAL PROTEIN TIMED 25.5 MG/DL
[2017-07-07 12:06] LABS: BATH SALTS (MDPV) UR NEG (NEG); ECSTASY (MDMA) UR NEG (NEG); HEROIN (6-ACETYLMORPHINE) UR NEG (NEG); K2 SPICE UR NEG (NEG); OBMETHADONE UR NEG (NEG); PHENCYCLIDINE URINE NEG (NEG)
[2017-07-07 12:07] LABS: GABAPENTIN UR NEG (NEG); HYDROMORPHONE U NEG (NEG)
== END 2017-07-06 15:05 | disposition home or self-care (01) | DRG 766 ==
LOC: HOBED 22:34 → H2EB 23:20 → H1EA 07-02 02:40
PROVIDERS: ADMIT Obstetrics & Gynecology; ATTEND Obstetrics & Gynecology
PROC: 10D00Z1 Extraction of Products of Conception, Low, Open Approach (ICD-10-PCS; principal; 2017-07-01)
DX: O34.211 Maternal care for low transverse scar from previous cesarean delivery (principal); O16.4 Unspecified maternal hypertension, complicating childbirth; Z37.0 Single live birth; Z3A.38 38 weeks gestation of pregnancy
CPT/HCPCS: 59025; 80048; 80307; 81001; 82340; 82570; 84157; 84550; 85025; 85027; 86850; 86900; 86901; 90715; G0481; J2274; J2405; J2590; J3105